=== PATIENT | female | born 1990 ===

== ENCOUNTER 2016-07-20 10:07 | Observation (INO) | payer SELFPAY ==
[2016-07-20 10:07] VITALS: BMI 24.7
[2016-07-20 10:13] VITALS: O2SAT 99
[2016-07-20] MEDS ORDERED: Sodium Chloride 0.9% 1,000 ML IV STA (10:38)
--- NOTE | 2016-07-20 10:59 | ED PDOC ---
HPI: General Adult Time Seen by Provider: 07/20/16 10:22 Chief Complaint (Nursing): Flu-like Symptoms Chief Complaint (Provider): Flu-like Symptoms History Per: Patient History/Exam Limitations: no limitations Onset/Duration Of Symptoms: Days (x3 days) Additional Complaint(s): 25 y/o female presents to the emergency department with a complaint of a fever, body aches, sore throat, mild abdominal pain, loss of appetite, and headache. Patient states she took Motrin at 5am without the relief of symptoms. Denies vomiting and diarrhea. PMD: Dr. Mary Hdz MD Past Medical History Reviewed: Historical Data, Nursing Documentation, Vital Signs Vital Signs: Last Vital Signs Temp 100.0 F H 07/20/16 14:47 Pulse 95 H 07/20/16 14:47 Resp 18 07/20/16 14:47 BP 125/68 07/20/16 14:47 Pulse Ox 99 07/20/16 14:57 - Medical History PMH: Anemia, Asthma (per old record but pt denies), Depression (no meds), HTN Denies: Chronic Kidney Disease - Surgical History Surgical History: Denies: CABG - Family History Family History: States: Unknown Family Hx - Immunization History Hx Tetanus Toxoid Vaccination: No Hx Influenza Vaccination: Yes Hx Pneumococcal Vaccination: No - Home Medications Home Medications: Ambulatory Orders Medication Instructions Recorded Azithromycin [Zithromax] 250 mg PO DAILY #4 tab 07/20/16 Naproxen [Naprosyn] 500 mg PO BID PRN #15 tablet 07/20/16 - Allergies Allergies/Adverse Reactions: Allergies Allergy/AdvReac Type Severity Reaction Status Date / Time No Known Allergies Allergy Verified 06/26/16 20:15 Review of Systems ROS Statement: Except As Marked, All Systems Reviewed And Found Negative Constitutional: Positive for: Fever, Other (loss of appetite and body aches) ENT: Positive for: Throat Pain Gastrointestinal: Positive for: Abdominal Pain (Mild). Negative for: Vomiting, Diarrhea Neurological: Positive for: Headache Physical Exam - Reviewed Nursing Documentation Reviewed: Yes Vital Signs Reviewed: Yes - Physical Exam Appears: Positive for: Non-toxic, No Acute Distress Head Exam: Positive for: ATRAUMATIC, NORMOCEPHALIC Skin: Positive for: Normal Color, Warm, Dry ENT: Positive for: Other (Post nasal drip. Vulva midline. ). Negative for: Pharyngeal Erythema, Tonsillar Exudate Neck: Positive for: Normal, Supple Cardiovascular/Chest: Positive for: Regular Rate, Rhythm. Negative for: Murmur Respiratory: Positive for: Normal Breath Sounds. Negative for: Accessory Muscle Use, Respiratory Distress Gastrointestinal/Abdominal: Positive for: Soft, Tenderness (Mild; generalized). Negative for: Guarding, Rebound Neurologic/Psych: Positive for: Alert, Oriented - Laboratory Results Result Diagrams: 07/20/16 11:30 07/20/16 11:30 - ECG O2 Sat by Pulse Oximetry: 99 (RA) Pulse Ox Interpretation: Normal Medical Decision Making Medical Decision Making: Time: 10:22 Initial impression: Viral Syndrome Initial plan: --COMP Metabolic Panel --ED Urine Dipstick (POC) Stat --ED Urine (POC) --CBC w/ differential --Toradol 10 mg IVP --Sodium Chloride 1,000 mls IV 1,000 mls/r --Zofran INJ 4 mg IV --Blood Culture Stat --Influenza A B Stat --Rapid Strep Group A Antigen --Urinalysis Stat --Revaluation Scribe Attestation: Documented by Phoebe Black, acting as a scribe for Yeny Awan MD. Provider Scribe Attestation: All medical record entries made by the Scribe were at my direction and personally dictated by me. I have reviewed the chart and agree that the record accurately reflects my personal performance of the history, physical exam, medical decision making, and the department course for this patient. I have also personally directed, reviewed, and agree with the discharge instructions and disposition. ED OBSERVATION Time of observation admission: 11:00 - Observation admission statement Patient is being placed in observation because:: Fever Disposition - Clinical Impression Clinical Impression: Strep pharyngitis, Infectious mononucleosis - Disposition Disposition: Routine/Home Disposition Time: 15:15 Condition: IMPROVED
[2016-07-20 12:01] LABS: RBC URINE 4 /hpf (0-3); URINE BACTERIA RARE (<OCC); URINE BILIRUBIN NEGATIVE (NEGATIVE); URINE BLOOD NEGATIVE (NEGATIVE); URINE COLOR YELLOW (YELLOW); URINE GLUCOSE (UA) NEG (Normal); URINE KETONE NEGATIVE (NEGATIVE); URINE LEUKOCYTE ESTERASE NEG Leu/uL (Negative); URINE PROTEIN NEGATIVE (NEGATIVE); URINE UROBILINOGEN 0.2-1.0 mg/dL (0.2-1.0); WBC URINE 2 /hpf (0-5)
[2016-07-20 12:10] LABS: BASO % 0.1 % (0.0-2.0); HEMATOCRIT 35.8 % (34.0-47.0); LYMPH # 0.7 K/uL (1.0-4.3); LYMPH % 8.4 % (20.0-40.0); MEAN CELL VOLUME 79.6 fl (81.0-99.0); MEAN CORPUSCULAR HEMOGLOBIN 26.4 pg (27.0-31.0); MEAN CORPUSCULAR HGB CONC 33.1 g/dL (33.0-37.0); MONO # 0.5 K/uL (0.0-0.8); MONO % 6.4 % (0.0-10.0); NEUT # 6.9 K/uL (1.8-7.0); NEUT % 85.1 % (50.0-75.0); PLATELET COUNT 130 K/uL (130-400); RED CELL DISTRIBUTION WIDTH 16.2 % (11.5-14.5)
[2016-07-20 12:16] LABS: ALT/SGPT 66 U/L (9-52); AST/SGOT 40 U/L (14-36); BILIRUBIN,TOTAL 1.1 mg/dl (0.2-1.3); BLOOD UREA NITROGEN 7 mg/dl (7-17); CARBON DIOXIDE 21 mmol/L (22-30); CHLORIDE 103 mmol/L (98-107); GFR AFRICAN-AMERICAN > 60; GLUCOSE,RANDOM 102 mg/dL (65-105); POTASSIUM 4.4 MMOL/L (3.6-5.0); SODIUM 135 mmol/l (132-148); TOTAL PROTEIN 8.3 G/DL (6.3-8.2); WHITE BLOOD COUNT 8.1 K/uL (4.8-10.8)
[2016-07-20 12:18] LABS: ALKALINE PHOSPHATASE 65 U/L (38-126)
[2016-07-20] MEDS ORDERED: Dexamethasone 10 MG in Sodium Chloride 0.9% 50 ML IVP STA (12:50)
[2016-07-20] MEDS ORDERED: Azithromycin 500 MG in Sodium Chloride 0.9% 250 ML IVPB STA (12:51)
[2016-07-20 13:22] LABS: NEUTROPHIL 85 % (42-75); TOTAL CELLS COUNTED 100
[2016-07-20 13:23] LABS: LARGE PLATELETS PRESENT
[2016-07-20] MEDS ORDERED: Dexamethasone 10 MG in Sodium Chloride 0.9% 50 ML IV ONE (14:30)
[2016-07-20 14:48] VITALS: BP 125/68; PULSE 95; RESP 18; TEMP 100
== END 2016-07-20 15:15 | disposition home or self-care (01) ==
LOC: H.ER 10:07 → H.EROBSV 11:00
PROVIDERS: ADMIT Emergency Medicine; ATTEND Emergency Medicine
DX: J02.0 Streptococcal pharyngitis (principal); B27.90 Infectious mononucleosis, unspecified without complication